=== PATIENT | male | born 1965 | race Caucasian/White ===

== ENCOUNTER 2016-08-18 23:52 | Emergency (ER) | payer SELFPAY ==
[~2016-08-18] VITALS: Ht 175.3 cm; Wt 70.0 kg
[~2016-08-18 23:52] MED LIST: RANI150 PO
[2016-08-18 23:57] VITALS: BP 154/92; PULSE 76; RESP 16; TEMP 97.4; O2SAT 96
[2016-08-19 00:30] VITALS: RESP 18
[2016-08-19] MEDS ORDERED: TERB250T4 PO (00:32)
[2016-08-19] MEDS ORDERED: [UNRECOGNIZED DRUG - CODE] PO (00:32)
[2016-08-19 00:41] LABS: AUTOMATED NEUTROPHIL # 4.9 TH/MM3 (1.8-7.7); BASOPHIL # 0.1 TH/MM3 (0-0.2); BASOPHIL % 0.7 % (0.0-2.0); EOSINOPHIL # 0.1 TH/MM3 (0-0.4); EOSINOPHIL % 1.5 % (0.0-4.0); HEMATOCRIT 42.5 % (39.0-51.0); HEMO FLAGS DIFF FINAL; LYMPH % 35.3 % (9.0-44.0); LYMPHOCYTE # 3.3 TH/MM3 (1.0-4.8); MEAN CELL VOLUME 94.3 FL (80.0-100.0); MEAN CORPUSCULAR HEMOGLOBIN 33.8 PG (27.0-34.0); MEAN CORPUSCULAR HGB CONC 35.9 % (32.0-36.0); MONO % 9.4 % (0.0-8.0); NEUT % 53.1 % (16.0-70.0); PLATELET COUNT 256 TH/MM3 (150-450); RED BLOOD COUNT 4.51 MIL/MM3 (4.50-5.90); RED CELL DISTRIBUTION WIDTH 12.3 % (11.6-17.2); WHITE BLOOD COUNT 9.2 TH/MM3 (4.0-11.0)
--- NOTE | 2016-08-19 01:19 | PD ---
HPI Chief Complaint: Complaint Time Seen by Provider: 00:26 Travel History International Travel<30 days: No Contact w/Intl Traveler<30days: No Traveled to known affect area: No History of Present Illness HPI The patient is a 51 year old male who presents to the [facility] emergency department with a history of 2 concerns. The first concern is that the patient has a cyst on his neck that he's had for the last 3-4 years, however 3 days ago it seemed to be getting inflamed. He squeezed the area and some white drainage came out, however the cyst became much bigger since then. He reports that he continues to be tender to touch. The second complaint that the patient reports his difficulty urinating. He reports having a tingling sensation in his urethra with urinary frequency and urgency.he denies any penile discharge. He denies having any abdominal pain or flank pain. He denies having any new sexual partners or concerns about sexually transmitted infections. The patient denies any history of fever, cough, congestion, neck pain, chest pain, shortness of breath, abdominal pain, vomiting, diarrhea, or neurologic symptoms. PFSH Past Medical History Narrative Medical The patient has a past medical history significant for acid reflux. Medical History: Denies Significant Hx Diminished Hearing: No Gastrointestinal Disorders: Yes (ACID REFLEX) Integumentary: Yes (psoriasis) Tetanus Vaccination: Unknown Past Surgical History Narrative Surgical The patient denies any past surgical history. Surgical History: No Previous Surgery Social History Alcohol Use: No Tobacco Use: No Substance Use: No Allergies-Medications (Allergen,Severity, Reaction): Coded Allergies: No Known Allergies (Verified , 08/19/16) Reported Meds & Prescriptions Reported Meds & Active Scripts Active Keflex (Cephalexin) 500 Mg Cap 500 Mg PO Q6H 10 Days Flomax (Tamsulosin HCl) 0.4 Mg Cap 0.4 Mg PO HS Reported Terbinafine 250 Mg Tab 250 Mg PO DAILY Review of Systems Except as stated in HPI: all other systems reviewed are Neg General / Constitutional: No: Fever Eyes: No: Visual changes HENT: Positive: Other (cyst on his anterior neck), No: Headaches Cardiovascular: No: Chest Pain or Discomfort Respiratory: No: Shortness of Breath Gastrointestinal: No: Abdominal Pain Genitourinary: Positive: Urgency, Frequency, Dysuria Musculoskeletal: No: Pain Skin: No Rash Neurologic: No: Weakness Psychiatric: No: Depression Endocrine: No: Polydipsia Hematologic/Lymphatic: No: Easy Bruising Physical Exam Narrative General: The patient is a well-developed well-nourished male in no acute distress Head and Neck exam: Head is normocephalic atraumatic. Eyes: EOMI, pupils are equal round and reactive to light. Nose: Midline septum with pink mucous membranes Mouth: Dentition unremarkable. Moist mucus membranes. Posterior oropharynx is not erythematous. No tonsillar hypertrophy. Uvula midline. Airway patent. Neck: No palpable lymphadenopathy. No nuchal rigidity. No thyromegaly. The patient on examination of the anterior neck is noted to have a cystic 1 cm lesion noted with a central pore. There is no fluctuance noted. There is minimal discomfort on palpation. Cardiovascular: Regular rate and rhythm without murmurs, gallops, or rubs. Lungs: Clear to auscultation bilaterally. No wheezes, rhonchi, or rales. Abdomen: Soft, without tenderness to palpation in all 4 quadrants of the abdomen. No guarding, rebound, or rigidity. Normal bowel sounds are audible. Extremities: No clubbing, cyanosis, or edema. No calf tenderness on palpation. Back: No spinous process tenderness to palpation. No costovertebral angle tenderness to palpation. Neurologic Exam: Grossly nonfocal. Skin Exam: No rash noted. Intact skin that is warm and dry. Data Data Last Documented VS Vital Signs Date Time Temp Pulse Resp B/P Pulse Ox O2 Delivery O2 Flow Rate FiO2 08/19/16 00:30 18 08/18/16 23:57 97.4 76 154/92 96 Room Air Orders Urinalysis - C+S If Indicated (08/19/16 00:27) Complete Blood Count With Diff (08/19/16 00:27) Basic Metabolic Panel (Bmp) (08/19/16 00:27) Iv Access Insert/Monitor (08/19/16:27) Ecg Monitoring (08/19/16:27) Oximetry (08/19/16 00:27) Labs Laboratory Tests Test 08/19/16 08/19/16 00:35 01:15 White Blood Count 9.2 TH/MM3 Red Blood Count 4.51 MIL/MM3 Hemoglobin 15.3 GM/DL Hematocrit 42.5 % Mean Corpuscular Volume 94.3 FL Mean Corpuscular Hemoglobin 33.8 PG Mean Corpuscular Hemoglobin 35.9 % Concent Red Cell Distribution Width 12.3 % Platelet Count 256 TH/MM3 Mean Platelet Volume 7.6 FL Neutrophils (%) (Auto) 53.1 % Lymphocytes (%) (Auto) 35.3 % Monocytes (%) (Auto) 9.4 % Eosinophils (%) (Auto) 1.5 % Basophils (%) (Auto) 0.7 % Neutrophils # (Auto) 4.9 TH/MM3 Lymphocytes # (Auto) 3.3 TH/MM3 Monocytes # (Auto) 0.9 TH/MM3 Eosinophils # (Auto) 0.1 TH/MM3 Basophils # (Auto) 0.1 TH/MM3 CBC Comment DIFF FINAL Differential Comment Sodium Level 139 MEQ/L Potassium Level 3.8 MEQ/L Chloride Level 102 MEQ/L Carbon Dioxide Level 25.7 MEQ/L Anion Gap 11 MEQ/L Blood Urea Nitrogen 12 MG/DL Creatinine 0.99 MG/DL Estimat Glomerular Filtration 79 ML/MIN Rate Random Glucose 90 MG/DL Calcium Level 8.5 MG/DL Urine Color LIGHT-YELLOW Urine Turbidity CLEAR Urine pH 6.5 Urine Specific Otley 1.006 Urine Protein NEG mg/dL Urine Glucose (UA) NEG mg/dL Urine Ketones NEG mg/dL Urine Occult Blood NEG Urine Nitrite NEG Urine Bilirubin NEG Urine Urobilinogen LESS THAN 2.0 MG/DL Urine Leukocyte Esterase NEG Urine RBC 1 /hpf Urine WBC 2 /hpf Microscopic Urinalysis Comment CULT NOT INDICATED MDM Medical Decision Making Medical Screen Exam Complete: Yes Emergency Medical Condition: Yes Medical Record Reviewed: Yes Interpretation(s) Laboratory Tests Test 08/19/16 00:35 Monocytes (%) (Auto) 9.4 % (0.0-8.0) Estimat Glomerular Filtration 79 ML/MIN (>89) Rate Differential Diagnosis Urinary tract infection, versus prostatitis, versus benign prostatic hypertrophy , versus urethritis. Regarding the patient's cysts in the center of his neck, this could be a thyroglossal duct cyst, versus infected sebaceous cyst Narrative Course During the course of the patients emergency department visit, the patients history, examination, and differential diagnosis were reviewed with the patient. The patient had IV access obtained and blood work sent for analysis. The patient was placed on a manager monitoring with oximetry and blood pressure monitoring. The patients laboratory studies were reviewed and remarkable for a white count of 9.2, hemoglobin 15.3, platelets 256 with 9.4 monocytes basic metabolic profiles unremarkable. Urinalysis is within normal limits. The patient's results were discussed with him. The patient's urinary symptoms could be related to benign prostatic hypertrophy. He was given a trial of Flomax. The patient's anterior neck cyst appears to be an inflamed sebaceous cyst. The patient was given a prescription for Keflex at discharge. The patient is resting comfortably and feels better, is alert and in no distress. The patients results and examination findings were discussed with the patient. The repeat examination is unremarkable and benign. The history, exam, diagnostic testing, and current condition do not suggest any significant pathology to warrant further testing, continued ED treatment, admission, or surgical evaluation at this point. The vital signs have been stable. The patient does not have uncontrollable pain, intractable vomiting, or other significant symptoms. The patient's condition is stable and appropriate for discharge. The patient will pursue further outpatient evaluation with a primary care physician or other designated or consulting physician as indicated in the discharge instructions. The patient expressed understanding and was agreeable with this plan. Diagnosis Primary Impression: Urinary urgency Additional Impressions: Dysuria Infected sebaceous cyst of skin Referrals: Everett Gee MD 1 week If urinary symptoms continue, follow-up with this urologist in 1 week. Natalya Allen MD 3 days Patient Instructions: Cyst (ED), Dysuria (ED), General Instructions Med/Other Pt SpecificInfo: Prescription(s) given Scripts Cephalexin (Keflex)500 Mg [id number] Mg PO Q6H 10 Days Ref 0 Prov:Jeanine Whitaker MD 08/19/16 Tamsulosin (Flomax)0.4 Mg Cap0.4 Mg PO HS #14 CAP Ref 0 Prov:Jeanine Whitaker MD 08/19/16 Disposition: DISCHARGE HOME Condition: Stable Jeanine Whitaker MD Aug 19, 2016 01:19 Urine Color LIGHT-YELLOW Urine Turbidity CLEAR Urine pH 6.5 Urine Specific Otley 1.006 Urine Protein NEG mg/dL Urine Glucose (UA) NEG mg/dL Urine Ketones NEG mg/dL Urine Occult Blood NEG Urine Nitrite NEG Urine Bilirubin NEG Urine Urobilinogen LESS THAN 2.0 MG/DL Urine Leukocyte Esterase NEG Urine RBC 1 /hpf Urine WBC 2 /hpf Microscopic Urinalysis Comment CULT NOT INDICATED Differential Diagnosis Urinary tract infection, versus prostatitis, versus benign prostatic hypertrophy , versus urethritis. Regarding the patient's cysts in the center of his neck, this could be a thyroglossal duct cyst, versus infected sebaceous cyst Narrative Course During the course of the patients emergency department visit, the patients history, examination, and differential diagnosis were reviewed with the patient. The patient had IV access obtained and blood work sent for analysis. The patient was placed on a manager monitoring with oximetry and blood pressure monitoring. The patient was provided [-]. The patients laboratory studies were reviewed and remarkable for [-]. Radiology studies were reviewed and remarkable for [-] Diagnosis Primary Impression: Urinary urgency Additional Impressions: Dysuria Infected sebaceous cyst of skin Referrals: Everett Gee MD 1 week If urinary symptoms continue, follow-up with this urologist in 1 week. Natalya Allen MD 3 days Patient Instructions: Cyst (ED), Dysuria (ED), General Instructions Med/Other Pt SpecificInfo: Prescription(s) given Scripts Cephalexin (Keflex)500 Mg [id number] Mg PO Q6H 10 Days Ref 0 Prov:Jeanine Whitaker MD 08/19/16 Tamsulosin (Flomax)0.4 Mg Cap0.4 Mg PO HS #14 CAP Ref 0 Prov:Jeanine Whitaker MD 08/19/16 Disposition: 01 DISCHARGE HOME Condition: Stable Jeanine Whitaker MD Aug 19, 2016 01:19
[2016-08-19 01:32] LABS: BICARBONATE 25.7 MEQ/L (21.0-32.0); POTASSIUM 3.8 MEQ/L (3.5-5.1)
[2016-08-19 01:34] LABS: BLOOD, URINE NEG (NEG); GLUCOSE,URINE NEG (NEG); KETONE, URINE NEG (NEG); NITRITE,URINE NEG (NEG); PH, URINE 6.5 (5.0-8.5); URINE COLOR LIGHT-YELLOW (YELLW/STRAW)
[2016-08-19 01:35] LABS: COMMENT (UR) CULT NOT INDICATED; CULTURE IF INDICATED CULT NOT INDICATED
[2016-08-19] MEDS ORDERED: CEPH-460 PO (03:47)
[2016-08-19] MEDS ORDERED: TAMS5CAP PO (03:47)
== END 2016-08-19 04:20 | disposition home or self-care (01) ==
LOC: NEPE 23:52
DX: R30.0 Dysuria (principal); R39.15 Urgency of urination; L72.3 Sebaceous cyst
CPT/HCPCS: 80048; 81001; 85025; 99283